=== PATIENT | female | born 2000 | race Hispanic/Latino ===

== ENCOUNTER 2024-01-02 11:38 | Emergency (ER) | payer SELFPAY ==
[~2024-01-02] VITALS: Ht 152.4 cm; Wt 59.0 kg
[2024-01-02 12:21] LABS: BASOPHILS # (AUTO) 0.01 K/uL (0.00-0.20); BASOPHILS % (AUTO) 0.1 % (0.0-5.0); EOSINOPHILS # (AUTO) 0.04 K/uL (0.00-0.70); EOSINOPHILS % (AUTO) 0.4 % (0.0-8.0); IMMATURE GRANULOCYTE ABSOLUTE 0.03 K/uL (0-1); LYMPHOCYTES # (AUTO) 1.1 K/uL (1.0-4.8); LYMPHOCYTES % (AUTO) 10.7 % (21.0-51.0); MEAN CORPUSCULAR HEMOGLOBIN 28.9 pg (27.0-33.0); MEAN CORPUSCULAR HGB CONC 33.2 g/dL (32.0-36.0); MONOCYTES # (AUTO) 0.4 K/uL (0.1-1.0); MONOCYTES % (AUTO) 3.9 % (3.0-13.0); NEUTROPHILS # (AUTO) 8.6 K/uL (1.8-7.7); NEUTROPHILS % (AUTO) 84.6 % (40.0-77.0); PLATELET COUNT (AUTO) 259 K/uL (130-400); RED BLOOD CELL COUNT(AUTO) 5.06 MIL/uL (4.00-5.50); RED CELL DISTRIBUTION WIDTH 12.7 % (11.0-15.5); WHITE BLOOD COUNT (AUTO) 10.2 K/uL (4.8-10.8)
[2024-01-02 12:29] LABS: CREATININE 0.7 mg/dL (0.5-1.0); POTASSIUM 3.5 mmol/L (3.5-5.1)
[2024-01-02] MEDS: 0.9%NACL 1000ML 1,000 ML IV ONE (12:33)
[2024-01-02] MEDS: ketOROlac 30MG VIAL (30MG/ML) IVP ONE (12:34)
[2024-01-02] MEDS: ONDANSETRON 4MG INJ IVP ONE (12:34)
[2024-01-02 12:42] LABS: APPEARANCE,URINE CLEAR (CLEAR); BILIRUBIN,URINE NEGATIVE (NEGATIVE); COLOR,URINE LIGHT-YELLOW (YELLOW); GLUCOSE, URINE (UA) NEGATIVE (NEGATIVE); KETONES,URINE NEGATIVE (NEGATIVE); LEUKOCYTE ESTERASE ,URINE NEGATIVE Leu/uL (NEGATIVE); NITRATE,URINE NEGATIVE (NEGATIVE); OCCULT BLOOD,URINE NEGATIVE (NEGATIVE); PROTEIN,URINE NEGATIVE (NEGATIVE); UROBILINOGEN,URINE 0.2 mg/dL (0.2-1.0)
[2024-01-02 12:46] LABS: ADD UA MICROSCOPIC NO
[2024-01-02] MEDS ORDERED: IBUP-2077 PO (13:54)
[2024-01-02 14:34] VITALS: BP 122/68; PULSE 74; RESP 18; TEMP 98.3; O2SAT 98
== END 2024-01-02 14:36 | disposition home or self-care (01) ==
LOC: EDH 11:38
DX: R10.2 Pelvic and perineal pain (principal); R10.31 Right lower quadrant pain; R10.32 Left lower quadrant pain; Z98.890 Other specified postprocedural states
CPT/HCPCS: 99285; 74176; 96374; 96361; 96375; 80048; 85025; 81003; 81025; 36415; J2405; J1885